=== PATIENT | male | born 1940 | race Caucasian/White ===

== ENCOUNTER → 2018-07-04 17:43 | Outpatient (CLI) | payer OTHER, SELFPAY ==
--- NOTE | 2018-07-09 15:46 | PM.PFT.1 ---
Pulmonary Function Test Referral & Results Date Patient Seen: 07/04/18 Requesting provider: Anirudh Lopez Indication: R06.09 Results: The spirometry demonstrates an FVC of 2.97 L which is 66% of predicted. The FEV1 was measured at 1.93 L which is 60% of predicted. The FEV1/FVC ratio was 65 which is 90% of predicted. Following the administration of bronchodilator there was 11% improvement in FEV1 and a 36% improvement in FEF 25-75%. Lung volumes show an SVC of 3.66 L which is 77% of predicted. The diffusing capacity was measured at 22.69 which is 64% of predicted. No hemoglobin value was provided, so no correction for potential anemia could be made, if appropriate. 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
== END ==
PROVIDERS: Family Provider Family Medicine; PCP Family Medicine; Referring Provider Internal Medicine Interventional Cardiology; Visit Provider Family Medicine
DX: R06.09 Other forms of dyspnea (principal)
CPT/HCPCS: 94060; 94726; 94729

== ENCOUNTER 2020-03-09 11:44 | Emergency (ER) | payer MEDICARE, SELFPAY ==
[2020-03-09] VITALS (27 sets, daily range): BP systolic 135–237; BP diastolic 63–102; PULSE 58–70; RESP 14–24; TEMP 36.5; O2SAT 95–100; BMI 27.1
--- NOTE | 2020-03-09 11:49 | ED_ITS ---
HPI - General Adult General Chief complaint: Shortness of Breath/Dyspnea Stated complaint: out of breath when walking Time Seen by Provider: 03/09/20 11:49 History of Present Illness HPI narrative: 80-year-old gentleman with a history of coronary bypass, carotid artery disease, mesenteric ischemia, pulmonary embolism currently on Eliquis presents with 2 days of increasing exertional dyspnea and chest pressure. Rather acute change 2 days ago without any associated ?event or obvious change to symptoms at this time. He notes that he has not been walking his usual 1 mi a day because of smoke in the air in when he went to do so today had trouble even going a quarter of a mi without feeling short of breath. He did try a nitroglycerin when he returned home (prescription was 2 years old and given after his open heart surgery) but did not notice that it made any difference he does note that it tingled under his tongue. Recently he describes no orthopnea, no actual chest pain, no focal neurologic findings, no cough, no fevers, no abdominal pain, no lower extremity edema. Notes that over the last 6 weeks he has had numbness in both feet by the end of his 1 mi walk without any muscle cramping. The numbness resolves within minutes of stopping Related Data Home Medications Medication Instructions Recorded Confirmed aspirin 81 mg PO QDAY #0 01/21/13 03/09/20 [CO-Q-10] 300 mg Q DAY #0 03/20/16 03/09/20 ascorbic acid (vitamin C) 1,000 mg PO QDAY #0 tab 03/20/16 albuterol sulfate [Ventolin HFA] 2 puff INHALATION Q4-6H PRN 03/09/20 03/09/20 apixaban [Eliquis] 5 mg PO BID 03/09/20 03/09/20 carvedilol 25 mg PO BID 03/09/20 03/09/20 cyclobenzaprine 10 mg PO BEDTIME PRN 03/09/20 03/09/20 diphenhydramine-acetaminophen 1 tab PO BEDTIME PRN 03/09/20 03/09/20 [Acetaminophen PM] fluticasone propionate [Flovent 2 puff INHALATION BID 03/09/20 03/09/20 HFA] losartan 25 mg PO DAILY 03/09/20 03/09/20 rosuvastatin 40 mg PO DAILY 03/09/20 03/09/20 sildenafil 100 mg PO DAILY PRN 03/09/20 03/09/20 tamsulosin 0.4 mg PO BEDTIME 03/09/20 03/09/20 Previous Rx's Medication Instructions Recorded [id number] 0 OTIC QID #10 ml 05/25/16 prednisone 2.5 mg PO QDAY #45 tab 02/09/17 allopurinol 200 mg PO QDAY #180 tab 02/22/17 Allergies Allergy/AdvReac Type Severity Reaction Status Date / Time No Known Drug Allergies Allergy Verified 03/09/20 11:52 Review of Systems Review of Systems Narrative: Remainder of review of systems including constitutional, ENT, cardiovascular, respiratory, GI, , musculoskeletal, skin, neurologic and psychiatric systems reviewed and are unremarkable except as noted in HPI. Patient History Medical History Coronary artery disease involving ak chin coronary artery of ak chin heart without angina pectoris (08/23/15) History of colonic polyps (08/23/15) History of stroke (08/23/15) Hypertension (Acute) Mesenteric ischemia (08/23/15) Mixed hyperlipidemia (08/23/15) Pacemaker (Acute) Stage 3 chronic kidney disease (08/23/15) Surgical History Hx of CABG (Inactive) Social History Smoking Status: Unknown if ever smoked Exam Narrative Exam Narrative: General: Healthy appearing, in no acute distress. Able to give a complete and coherent history. Well-nourished well-developed HEENT: Moist mucous membranes, normal sclera with reactive pupils, Neck: No JVD, supple Respiratory: Lungs are clear to auscultation, no wheezing no rales no rhonchi. Full and symmetrical air movement. Chest: Well-healed median sternotomy scar, no accessory muscle use Cardiac: Regular rate and rhythm no murmurs no bruits Abdomen: Soft nontender good bowel tones, no flank pain Skin: Warm and dry, no rashes Neurologic: Grossly neurologically intact with no obvious asymmetries or abnormalities Extremities: No trauma, well perfused Psych: Cooperative, appropriate insight and affect Initial Vital Signs Initial Vital Signs: Vital Signs Temperature 97.7 F 03/09/20 11:48 Pulse Rate 58 L 03/09/20 11:48 Respiratory Rate 18 03/09/20 11:48 Blood Pressure 223/93 H 03/09/20 11:48 Pulse Oximetry 98 03/09/20 11:48 Course Orders Ordered: ED Orders 03/09/20 11:51 XR chest 2V Stat EKG-12 Lead Stat 03/09/20 12:00 Complete Blood Count AUTO DIFF Stat Comprehensive Metabolic Panel Stat D Dimer Stat Lactate (Lactic Acid) Stat Troponin & CK Cardiac Panel Stat 03/09/20 13:37 CT angio chest PE protocol Stat 03/09/20 16:10 COVID19 -ED/INPAT/OR/L&D Stat Nitroglycerin (Nitrostat) 0.4 mg SL [id number] PRN PRN Reason: Chest Pain Last Admin: 03/09/20 12:26 Dose: 0.4 mg Documented by: LONNIE Discontinued Medications Bisacodyl (Dulcolax) 10 mg NE NOW ONE Stop: 03/09/20 11:56 Last Admin: 03/09/20 12:08 Dose: Not Given Documented by: LONNIE Dicyclomine HCl (Bentyl) 20 mg PO NOW ONE Stop: 03/09/20 11:56 Last Admin: 03/09/20 12:08 Dose: Not Given Documented by: LONNIE Furosemide (Lasix) 40 mg IV NOW ONE Stop: 03/09/20 18:07 Last Admin: 03/09/20 18:36 Dose: 40 mg Documented by: SAIRA Nitroglycerin (Nitro-Bid) 1 inch TOP NOW ONE Stop: 03/09/20 16:49 Last Admin: 03/09/20 16:56 Dose: 1 inch Documented by: SAIRA Vital Signs Vital signs: Vital Signs - 8 hr 03/09/20 11:48 03/09/20 11:52 03/09/20 12:00 Temperature 97.7 F Pulse Rate 58 L 61 61 Respiratory Rate 18 24 Blood Pressure 223/93 H Pulse Oximetry 98 99 99 03/09/20 12:26 03/09/20 12:30 03/09/20 12:41 Temperature Pulse Rate 60 60 60 Respiratory Rate 22 20 21 Blood Pressure 229/92 H 135/63 Pulse Oximetry 99 98 95 03/09/20 12:45 03/09/20 13:00 03/09/20 13:30 Temperature Pulse Rate 60 60 60 Respiratory Rate 14 19 17 Blood Pressure 145/65 H 184/78 H 164/71 H Pulse Oximetry 97 97 98 03/09/20 14:04 03/09/20 14:13 03/09/20 14:37 Temperature Pulse Rate 70 60 60 Respiratory Rate 22 17 Blood Pressure 195/82 H Pulse Oximetry 98 99 03/09/20 14:38 03/09/20 15:00 03/09/20 15:01 Temperature Pulse Rate 60 60 60 Respiratory Rate 19 17 16 Blood Pressure 212/88 H 199/83 H Pulse Oximetry 100 99 99 03/09/20 15:30 03/09/20 15:33 03/09/20 15:54 Temperature Pulse Rate 60 60 60 Respiratory Rate 24 24 22 Blood Pressure 226/101 H 237/99 H Pulse Oximetry 99 99 99 03/09/20 16:00 03/09/20 16:30 03/09/20 16:56 Temperature Pulse Rate 60 60 61 Respiratory Rate 20 16 Blood Pressure 212/93 H 223/86 H 237/102 H Pulse Oximetry 99 98 03/09/20 17:00 03/09/20 17:02 03/09/20 17:30 Temperature Pulse Rate 60 60 60 Respiratory Rate 20 19 18 Blood Pressure 237/102 H Pulse Oximetry 98 98 98 03/09/20 17:31 03/09/20 18:00 Temperature Pulse Rate 60 60 Respiratory Rate 18 17 Blood Pressure 196/82 H 197/83 H Pulse Oximetry 98 97 Medical Decision Making Medical Records Medical records reviewed: Yes I reviewed the patient's medical records. Lab Data Lab results reviewed: Yes I reviewed the patient's lab results. Result diagrams: 03/09/20 12:00 03/09/20 12:00 Labs: Lab Results 03/09/20 03/09/20 03/09/20 Range/Units 12:00 12:00 12:00 WBC 4.1 L (4.5-11.0) X10^3/uL RBC 3.61 L (4.5-5.9) X10^6/uL Hgb 12.4 L (13.5-17.5) g/dL Hct 37.2 L (41-53) % MCV 103.0 H (80-100) fL MCH 34.3 H (26-34) PG MCHC 33.3 (30-36) % RDW 15.2 H (11.6-14.8) % Plt Count 105 L (150-400) X10^3/uL Neut % (Auto) 58.0 (50-75) % Lymph % (Auto) 25.2 (25-40) % [place] % (Auto) 13.3 (3-14) % Eos % (Auto) 2.6 (2-4) % Baso % (Auto) 0.9 (0-2) % Neut # (Auto) 2400 (7431-9105) /uL Lymph # (Auto) 1000 L (1737-4563) /uL [place] # (Auto) 500 (0-900) /uL Eos # (Auto) 100 (0-450) /uL Baso # (Auto) 0 (0-100) /uL D-Dimer (<230) ng/mL Sodium 143 (137-145) mmol/L Potassium 5.0 (3.4-5.1) mmol/L Chloride 108 H (98-107) mmol/L Carbon Dioxide 28 (22-32) mmol/L BUN 34 H (9-20) mg/dL Creatinine 1.50 H (0.66-1.25) mg/dL Estimated GFR 45.0 L (>60) mL/min BUN/Creatinine Ratio 22.7 H (6-22) Glucose 101 (80-110) mg/dL Lactate 1.1 (0.7-2.1) mmol/L Calcium 9.4 (8.4-10.2) mg/dL Total Bilirubin 0.6 (0.2-1.3) mg/dL AST 24 (17-59) IU/L ALT 22 (<50) IU/L Alkaline Phosphatase 86 (38-126) U/L Total Creatine Kinase (55-170) U/L CK-MB (CK-2) CK-MB (CK-2) Rel Index Troponin I (0.01-0.034) ng/mL Total Protein 7.0 (6.3-8.2) g/dL Albumin 4.3 (3.5-5.0) g/dL Globulin 2.7 (1.7-4.1) g/dL Albumin/Globulin Ratio 1.6 (1.0-2.8) COVID-19 PCR (Negative) 03/09/20 03/09/20 03/09/20 Range/Units 12:00 12:00 16:10 WBC (4.5-11.0) X10^3/uL RBC (4.5-5.9) X10^6/uL Hgb (13.5-17.5) g/dL Hct (41-53) % MCV (80-100) fL MCH (26-34) PG MCHC (30-36) % RDW (11.6-14.8) % Plt Count (150-400) X10^3/uL Neut % (Auto) (50-75) % Lymph % (Auto) (25-40) % [place] % (Auto) (3-14) % Eos % (Auto) (2-4) % Baso % (Auto) (0-2) % Neut # (Auto) (7220-7981) /uL Lymph # (Auto) (1214-1612) /uL [place] # (Auto) (0-900) /uL Eos # (Auto) (0-450) /uL Baso # (Auto) (0-100) /uL D-Dimer 310 H (<230) ng/mL Sodium (137-145) mmol/L Potassium (3.4-5.1) mmol/L Chloride (98-107) mmol/L Carbon Dioxide (22-32) mmol/L BUN (9-20) mg/dL Creatinine (0.66-1.25) mg/dL Estimated GFR (>60) mL/min BUN/Creatinine Ratio (6-22) Glucose (80-110) mg/dL Lactate (0.7-2.1) mmol/L Calcium (8.4-10.2) mg/dL Total Bilirubin (0.2-1.3) mg/dL AST (17-59) IU/L ALT (<50) IU/L Alkaline Phosphatase (38-126) U/L Total Creatine Kinase 26 L (55-170) U/L CK-MB (CK-2) TNP CK-MB (CK-2) Rel Index TNP Troponin I 0.016 (0.01-0.034) ng/mL Total Protein (6.3-8.2) g/dL Albumin (3.5-5.0) g/dL Globulin (1.7-4.1) g/dL Albumin/Globulin Ratio (1.0-2.8) COVID-19 PCR Negative (Negative) Urine Dip Bedside Urine Glucose Negative Bedside Urine Bilirubin - Negative Bedside Urine Ketone - Negative Urine Specific [place] 1.030 Bedside Urine Occult Blood - Negative Bedside Urine pH 5.5 Bedside Urine Protein - Negative Bedside Urine Urobilinogen - Negative Bedside Urine Nitrite - Negative Bedside Urine Leukocytes - Negative Esterase Point of care testing: Urine Dip Bedside Urine Glucose Negative Bedside Urine Bilirubin - Negative Bedside Urine Ketone - Negative Urine Specific [place] 1.030 Bedside Urine Occult Blood - Negative Bedside Urine pH 5.5 Bedside Urine Protein - Negative Bedside Urine Urobilinogen - Negative Bedside Urine Nitrite - Negative Bedside Urine Leukocytes - Negative Esterase Imaging Data Chest x-ray: Radiologist's Impression: FINDINGS: Surgical changes and devices: Median sternotomy and CABG changes. Possible aortic valvuloplasty. Left-sided pacemaker. Monitoring wires are present overlying the chest. Lungs and pleura: Lungs are clear. No pleural effusions or pneumothorax. Mediastinum: Mediastinal contours are normal. Heart size is normal. Bones and chest wall: No suspicious bony abnormalities. Soft tissues appear unremarkable. IMPRESSION: 1. No acute cardiopulmonary disease. 2. Surgical changes to the heart as described. Dictated by: Tala Alford M.D. on 03/09/2020 at 11:26 CT scan - chest: Radiologist's Impression: FINDINGS: Image quality: Excellent. Pulmonary arteries: Pulmonary arteries are normal in size, and demonstrate no intraluminal filling defects to suggest central pulmonary embolism. Lungs and pleura: Minor posterior medial bilateral lower lung strandy opacities without consolidation. Lungs are otherwise clear. No pleural effusions or pneumothorax . Central and peripheral airways are patent. Mediastinum: Heart size is mildly enlarged with post CABG changes and dense [place] coronary artery calcification. Pacemaker leads are in place. There is no pericardial effusion. No mediastinal or hilar adenopathy. Thoracic aorta is normal in corwin jennifer and enhancement. Moderate calcification. Esophagus is normal in caliber, without hiatal hernia. Bones and chest wall: No suspicious bony lesions. Ribs and thoracic spine appear intact throughout. Thyroid gland is normal . No axillary or supraclavicular adenopathy. Abdomen: Visualized upper abdomen demonstrates cholelithiasis in a decompressed gallbladder and colonic diverticulosis without visible acute diverticulitis. IMPRESSION: 1. No pulmonary embolus. 2. Postsurgical changes to the heart and pacemaker present. 3. Minor posteromedial atelectatic changes/scar without other pulmonary parenchymal abnormalities present. 4. Cholelithiasis. Dictated by: Tala Alford M.D. on 03/09/2020 at 13:30 ECG Data Interpretation: Atrial paced rhythm at a rate of 66 Occasional PVC MDM Narrative Medical decision making narrative: 80-year-old gentleman presents with 2 days of severe dyspnea. Chest x-ray and clinical exam do not look like acute heart failure. Troponin is negative (EKG is paced so further interpretation is di fficult). Has no significant wheezing to suggest COPD or asthma exacerbation. D-dimer is slightly elevated as I have no other explanation for his severe acute dyspnea will moved to a CT scan of the chest. Sublingual nitro given in the emergency department caused significant decrease in blood pressure and took his pressure sensation in the chest from a 2 to a 1. 320pm CT scan of the chest does not show any acute pulmonary embolism, pneumonia, pneumothorax, pericardial effusion. Blood pressures remain significantly elevated in the 230/110 range, climbing back up after the single nitroglycerin. Dyspnea and any sort of chest pressure are currently resolved. [employer] is page 4:[phone] 80-year-old gentle with severe exertional dyspnea for 48 hours Covid negative no evidence of asthma or COPD complicating. Troponin and chest CT are unremarkable. Blood pressures remain significantly elevated room review findings with hospitalist. Cardiology paged again. 4:[address] Kim. Agrees with admission, likely stress test and echo. Last echo with 45% EF. Despite no CHF on imaging, recommends trial of IV nitro. Will see if beds are avialable at [facility] for hospitalist admit and cards consult. 6:05 Dr Elliott, hospitalist accepts transfer. Findings concerns plans and imminent transfer are reviewed with patient and his . Questions are answered. They are safe [facility] Discharge Plan Departure Patient Disposition: [facility] Clinical Impression: Exertional dyspnea Prescriptions: No Action aspirin 81 MG tablet,delayed release (DR/EC) 81 mg PO QDAY Qty: 0 RF: 0 ascorbic acid (vitamin C) 500 MG tablet 1,000 mg PO QDAY Qty: 0 RF: 0 [CO-Q-10] 300 mg Q DAY Qty: 0 RF: 0 [id number] 10 ML drops,suspension 0 OTIC QID Qty: 10 RF: 0 prednisone 5 MG tablet 2.5 mg PO QDAY Qty: 45 RF: 1 allopurinol 100 MG tablet 200 mg PO QDAY Qty: 180 RF: 0 cyclobenzaprine 10 mg Tablet 10 mg PO BEDTIME PRN (Reason: Muscle Spasm) RF: 0 carvedilol 25 mg Tablet 25 mg PO BID RF: 0 sildenafil 100 mg Tablet 100 mg PO DAILY PRN (Reason: Erectile Dysfunction) RF: 0 tamsulosin 0.4 mg Capsule 0.4 mg PO BEDTIME RF: 0 losartan 25 mg Tablet 25 mg PO DAILY RF: 0 albuterol sulfate [Ventolin HFA] 90 mcg/actuation Hfa Aerosol Inhaler 2 puff INHALATION Q4-6H PRN (Reason: Shortness Of Breath) RF: 0 diphenhydramine-acetaminophen [Acetaminophen PM] 25-500 mg Tablet 1 tab PO BEDTIME PRN (Reason: Spasms) RF: 0 Flovent HFA 110 mcg/actuation Hfa Aerosol Inhaler 2 puff INHALATION BID RF: 0 rosuvastatin 40 mg Tablet 40 mg PO DAILY RF: 0 Eliquis 5 mg Tablet 5 mg PO BID RF: 0 Referrals: Saeed Ramirez MD [Primary Care Provider] -
--- NOTE | 2020-03-09 11:51 | DI.RAD.S_ITS ---
PROCEDURE: XR CHEST 2V INDICATIONS: shortness of breath TECHNIQUE: 2 views of the chest were acquired. COMPARISON: [facility], , CHEST 1 VIEW, 06/24/2017, 14:53. FINDINGS: Surgical changes and devices: Median sternotomy and CABG changes. Possible aortic valvuloplasty. Left-sided pacemaker. Monitoring wires are present overlying the chest. Lungs and pleura: Lungs are clear. No pleural effusions or pneumothorax. Mediastinum: Mediastinal contours are normal. Heart size is normal. Bones and chest wall: No suspicious bony abnormalities. Soft tissues appear unremarkable. IMPRESSION: 1. No acute cardiopulmonary disease. 2. Surgical changes to the heart as described. Dictated by: Tala Alford M.D. on 03/09/2020 at 11:26 Approved by: Tala Alford M.D. on 03/09/2020 at 11:28
[2020-03-09 12:21] LABS: Add Manual Diff / Slide Review NO; Basophils Absolute Auto 0 /uL (0-100); Basophils Percent Auto 0.9 % (0-2); Eosinophils Absolute Auto 100 /uL (0-450); Eosinophils Percent Auto 2.6 % (2-4); Hematocrit 37.2 % (41-53); Hemoglobin 12.4 g/dL (13.5-17.5); Lymphocytes Absolute Auto 1000 /uL (1100-4500); Lymphocytes Percent Auto 25.2 % (25-40); Mean Corpuscular HGB Conc 33.3 % (30-36); Mean Corpuscular Hemoglobin 34.3 PG (26-34); Monocytes Absolute Auto 500 /uL (0-900); Monocytes Percent Auto 13.3 % (3-14); Neutrophils Absolute Auto 2400 /uL (1500-7000); Platelet Count 105 X10^3/uL (150-400); Red Blood Cell Count 3.61 X10^6/uL (4.5-5.9); Red Cell Distribution Width 15.2 % (11.6-14.8); White Blood Cell Count 4.1 X10^3/uL (4.5-11.0)
[2020-03-09 12:22] LABS: Alanine Aminotransferase 22 IU/L (<50); Albumin 4.3 g/dL (3.5-5.0); Albumin Globulin Ratio 1.6 (1.0-2.8); Alkaline Phosphatase 86 U/L (38-126); Aspartate Aminotransferase 24 IU/L (17-59); BUN Creatinine Ratio 22.7 (6-22); Bilirubin Total 0.6 mg/dL (0.2-1.3); Blood Urea Nitrogen 34 mg/dL (9-20); Calcium 9.4 mg/dL (8.4-10.2); Carbon Dioxide 28 mmol/L (22-32); Chloride 108 mmol/L (98-107); Globulin 2.7 g/dL (1.7-4.1); Glucose 101 mg/dL (80-110); HEMOLYSIS < 15 (0-50); Sodium 143 mmol/L (137-145)
[2020-03-09 12:23] LABS: Lactate (Lactic Acid) 1.1 mmol/L (0.7-2.1)
[2020-03-09] MEDS: NITROGLYCERIN 0.4 MG SL TAB SL (12:26)
[2020-03-09 12:38] LABS: Creatine Kinase 26 U/L (55-170)
[2020-03-09 12:47] LABS: D Dimer 310 ng/mL (<230)
[2020-03-09 12:50] LABS: Troponin I 0.016 ng/mL (0.01-0.034)
--- NOTE | 2020-03-09 13:37 | DI.CT.S_ITS ---
PROCEDURE: CT ANGIO CHEST PE PROTOCOL INDICATIONS: acute dyspnea, elevated d dimer TECHNIQUE: After the administration of intravenous contrast, 2 mm thick sections acquired from the pulmonary apices to the posterior costophrenic angles. 3-dimensional maximum intensity projection (MIP) coronal and sagittal reformats were then acquired through the thorax. For radiation dose reduction, the following was used: automated exposure control, adjustment of mA and/or kV according to patient size. COMPARISON: [facility], CT, CT ANGIO CHEST PE, 11/04/2018, 18:34. FINDINGS: Image quality: Excellent. Pulmonary arteries: Pulmonary arteries are normal in size, and demonstrate no intraluminal filling defects to suggest central pulmonary embolism. Lungs and pleura: Minor posterior medial bilateral lower lung strandy opacities without consolidation. Lungs are otherwise clear. No pleural effusions or pneumothorax. Central and peripheral airways are patent. Mediastinum: Heart size is mildly enlarged with post CABG changes and dense [place] coronary artery calcification. Pacemaker leads are in place. There is no pericardial effusion. No mediastinal or hilar adenopathy. Thoracic aorta is normal in caliber and enhancement. Moderate calcification. Esophagus is normal in caliber, without hiatal hernia. Bones and chest wall: No suspicious bony lesions. Ribs and thoracic spine appear intact throughout. Thyroid gland is normal . No axillary or supraclavicular adenopathy. Abdomen: Visualized upper abdomen demonstrates cholelithiasis in a decompressed gallbladder and colonic diverticulosis without visible acute diverticulitis. IMPRESSION: 1. No pulmonary embolus. 2. Postsurgical changes to the heart and pacemaker present. 3. Minor posteromedial atelectatic changes/scar without other pulmonary parenchymal abnormalities present. 4. Cholelithiasis. Dictated by: Tala Alford M.D. on 03/09/2020 at 13:30 Approved by: Tala Alford M.D. on 03/09/2020 at 13:38
[2020-03-09 16:40] LABS: COVID19 -Nasal RAPID Negative (Negative)
[2020-03-09] MEDS: NITROGLYCERIN OINT 1 INCH/GM OINT...G. TOP (16:56)
[2020-03-09] MEDS: FUROSEMIDE 40 MG/4 ML VIAL IV (18:36)
== END 2020-03-09 19:35 | disposition short-term general hospital (02) ==
PROVIDERS: Emergency Provider Emergency Medicine; Family Provider Family Medicine; PCP Family Medicine
DX: R06.00 Dyspnea, unspecified (principal); R07.9 Chest pain, unspecified; Z95.0 Presence of cardiac pacemaker
CPT/HCPCS: 36415; 71046; 71275; 80053; 81003; 82550; 83605; 84484; 85025; 85379; 87635; 93005; 93010; 94150; 96374; 99285; J1940; Q9967

== ENCOUNTER 2020-05-07 08:48 | Emergency (ER) | payer MEDICARE, SELFPAY ==
[2020-05-07] VITALS (9 sets, daily range): BP systolic 147–178; BP diastolic 61–76; PULSE 60–63; RESP 15–23; TEMP 36.6; O2SAT 97–99; BMI 23.5
--- NOTE | 2020-05-07 09:09 | ED_ITS ---
HPI - Extremity Problem General Chief complaint: Extremity Problem,Nontraumatic Stated complaint: pain in right leg Time Seen by Provider: 05/07/20 09:09 Source: patient Mode of arrival: Ambulatory Limitations: no limitations History of Present Illness HPI Narrative: Patient is a 80-year-old male with history of CABG, mesenteric ischemia, PE on Eliquis presenting with right leg pain ongoing for the last 5 days. He said Sunday he watched the football game so he sat quite a bit and then Sunday he started having extreme pain in his leg. He says he is unable to bend his knee because of pain. He has not actually had any swelling but it hurts too bad to walk. He has not had any chest pain or shortness of breath. He denies any injury MD Complaint: extremity pain Quality: aching Radiation: none Relieving factors: nothing Related Data Home Medications Medication Instructions Recorded Confirmed aspirin 81 mg PO QDAY #0 01/21/13 03/09/20 [CO-Q-10] 300 mg Q DAY #0 03/20/16 03/09/20 ascorbic acid (vitamin C) 1,000 mg PO QDAY #0 tab 03/20/16 albuterol sulfate [Ventolin HFA] 2 puff INHALATION Q4-6H PRN 03/09/20 03/09/20 apixaban [Eliquis] 5 mg PO BID 03/09/20 03/09/20 carvedilol 25 mg PO BID 03/09/20 03/09/20 cyclobenzaprine 10 mg PO BEDTIME PRN 03/09/20 03/09/20 diphenhydramine-acetaminophen 1 tab PO BEDTIME PRN 03/09/20 03/09/20 [Acetaminophen PM] fluticasone propionate [Flovent 2 puff INHALATION BID 03/09/20 03/09/20 HFA] losartan 25 mg PO DAILY 03/09/20 03/09/20 rosuvastatin 40 mg PO DAILY 03/09/20 03/09/20 sildenafil 100 mg PO DAILY PRN 03/09/20 03/09/20 tamsulosin 0.4 mg PO BEDTIME 03/09/20 03/09/20 Previous Rx's Medication Instructions Recorded [id number] OTIC QID #10 ml 05/25/16 prednisone 2.5 mg PO QDAY #45 tab 02/09/17 allopurinol 200 mg PO QDAY #180 tab 02/22/17 hydrocodone-acetaminophen 1 tab PO Q6H PRN #10 tab 05/07/20 Allergies Allergy/AdvReac Type Severity Reaction Status Date / Time No Known Drug Allergies Allergy Verified 03/09/20 11:52 Review of Systems Review of Systems ROS Unobtainable: All systems reviewed & are unremarkable except as noted in HPI and below Constitutional Constitutional: Denies chills, Denies fever(s), Denies lethargy and Denies weakness Eyes Eyes: Denies change in vision, Denies eye discharge, Denies irritation and Denies loss of vision Cardiovascular Cardiovascular: Denies chest pain, Denies irregular heart rhythm, Denies lightheadedness, Denies palpitations, Denies dyspnea, Denies dyspnea on exertion and Denies orthopnea Respiratory Respiratory: Denies cough, Denies dyspnea, Denies dyspnea on exertion and Denies wheezing Gastrointestinal Gastrointestinal: Denies abdominal pain, Denies change in bowel habits, Denies diarrhea, Denies nausea and Denies vomiting Musculoskeletal Musculoskeletal: Reports as per HPI Integumentary/Breasts Skin/Breast: Denies pruritus, Denies erythema, Denies rash and Denies wounds Neurologic Neurologic: Denies loss of vision and Denies weakness Endocrine Endocrine: Denies palpitations Allergic/Immunologic Allergic/Immunologic: Denies wheezing Patient History Medical History (Updated 05/07/20 @ 10:59 by Cecilia Kruse DO) Coronary artery disease involving [place] coronary artery of [place] heart without angina pectoris (08/23/15) History of colonic polyps (08/23/15) History of stroke (08/23/15) Hypertension Mesenteric ischemia (08/23/15) Mixed hyperlipidemia (08/23/15) Pacemaker Stage 3 chronic kidney disease (08/23/15) Surgical History Hx of CABG Social History Smoking Status: Unknown if ever smoked Smoking Status: Unknown if ever smoked alcohol intake frequency: 0-2 drinks per day Substance Use Type: does not use Exam Initial Vital Signs Initial Vital Signs: Vital Signs Temperature 97.9 F 05/07/20 09:11 Pulse Rate 62 05/07/20 09:11 Respiratory Rate 18 05/07/20 09:11 Blood Pressure 151/61 H 05/07/20 09:11 Pulse Oximetry 99 05/07/20 09:11 GENERAL: Alert well-appearing male HEENT: Head atraumatic,EOMI, pupils reactive, face symmetric, moist mucous membranes CARDIOVASCULAR: Regular rate and rhythm without murmurs, rubs or gallops. RESPIRATORY: Breath sounds equal bilaterally, no wheezes rales or rhonchi. ABDOMEN: Soft, nontender. Normoactive bowel sounds all 4 quadrants. No guarding or rebound. EXTREMITIES: Normal range of motion, no clubbing or edema. Neurovascularly intact Peripheral pulses in both feet are not palpable but they are identified by Doppler and he has adistal pedal pulse. Right knee is stable no erythema no swelling decreased range of motion due to pain NEUROLOGICAL: Alert and oriented x4.Normal gait and speech. Cranial nerves II through XII grossly intact. SKIN: Warm, dry, no laceration, no petechiae, no rashes or lesions. Course Orders Ordered: ED Orders 05/07/20 09:09 US periph venous low extrem rt Stat 05/07/20 09:20 XR chest 1V Stat Complete Blood Count AUTO DIFF Stat Comprehensive Metabolic Panel Stat Lipase Stat Partial Thromboplastin Time Stat Prothrombin Time INR Stat Troponin & CK Cardiac Panel Stat 05/07/20 09:47 US arterial duplex LE RT Stat 05/07/20 10:41 XR knee RT 3V Stat Vital Signs Vital signs: Vital Signs - 8 hr 05/07/20 09:11 05/07/20 09:22 05/07/20 09:25 Temperature 97.9 F Pulse Rate 62 61 63 Respiratory Rate 18 23 Blood Pressure 151/61 H 173/74 H Pulse Oximetry 99 99 99 05/07/20 09:30 05/07/20 10:00 05/07/20 10:01 Temperature Pulse Rate 62 60 60 Respiratory Rate 22 18 15 Blood Pressure 154/68 H 156/70 H Pulse Oximetry 99 98 98 05/07/20 10:30 05/07/20 10:57 05/07/20 11:00 Temperature Pulse Rate 60 61 61 Respiratory Rate 19 22 19 Blood Pressure 147/64 H 178/76 H 164/72 H Pulse Oximetry 97 99 99 MDM - Extremity (Nontraumatic) Lab Data Result diagrams: 05/07/20 09:20 05/07/20 09:20 Labs: Lab Results 05/07/20 05/07/20 05/07/20 Range/Units 09:20 09:20 09:20 WBC 4.1 L (4.5-11.0) X10^3/uL RBC 3.26 L (4.5-5.9) X10^6/uL Hgb 11.3 L (13.5-17.5) g/dL Hct 33.6 L (41-53) % MCV 103.1 H (80-100) fL MCH 34.6 H (26-34) PG MCHC 33.5 (30-36) % RDW 15.7 H (11.6-14.8) % Plt Count 101 L (150-400) X10^3/uL Neut % (Auto) 63.9 (50-75) % Lymph % (Auto) 20.6 L (25-40) % Patrick % (Auto) 12.5 (3-14) % Eos % (Auto) 2.2 (2-4) % Baso % (Auto) 0.8 (0-2) % Neut # (Auto) 2600 (2674-1828) /uL Lymph # (Auto) 800 L (4488-6499) /uL Patrick # (Auto) 500 (0-900) /uL Eos # (Auto) 100 (0-450) /uL Baso # (Auto) 0 (0-100) /uL PT 19.8 H (10.1-12.7) SECONDS INR 1.7 H (0.9-1.3) APTT 37 H (26.4-36.2) SECONDS Sodium 141 (137-145) mmol/L Potassium 4.8 (3.4-5.1) mmol/L Chloride 110 H (98-107) mmol/L Carbon Dioxide 25 (22-32) mmol/L BUN 37 H (9-20) mg/dL Creatinine 1.38 H (0.66-1.25) mg/dL Estimated GFR 49.6 L (>60) mL/min BUN/Creatinine Ratio 26.8 H (6-22) Glucose 139 H (80-110) mg/dL Calcium 9.4 (8.4-10.2) mg/dL Total Bilirubin 0.6 (0.2-1.3) mg/dL AST 19 (17-59) IU/L ALT 19 (<50) IU/L Alkaline Phosphatase 77 (38-126) U/L Total Creatine Kinase 23 L (55-170) U/L CK-MB (CK-2) TNP CK-MB (CK-2) Rel Index TNP Troponin I < 0.012 (0.01-0.034) ng/mL Total Protein 6.9 (6.3-8.2) g/dL Albumin 4.1 (3.5-5.0) g/dL Globulin 2.8 (1.7-4.1) g/dL Albumin/Globulin Ratio 1.5 (1.0-2.8) Lipase 234 (23-300) U/L Imaging Data US - DVT: Radiologist's Impression: PROCEDURE: US PERIPH VENOUS LOW EXTREM RT INDICATIONS: RIGHT CALF PAIN TECHNIQUE: Real-time imaging, as well as color and pulse Doppler interrogation, were performed of the lower extremity deep veins from the inguinal ligament to the popliteal fossa. COMPARISON: None. FINDINGS: The common femoral, femoral and popliteal veins are normally compressible, and free of intraluminal thrombus. Color and pulse Doppler demonstrate normal ph asic intraluminal flow. There is normal augmentation response to distal compression maneuver. IMPRESSION: No deep venous thrombosis. Dictated by: Dayna Nix M.D. on 05/07/2020 at 10:17 Extremity x-ray #1: Radiologist's Impression: PROCEDURE: XR KNEE RT 3V INDICATIONS: pain TECHNIQUE: 3 views of the knee were acquired. COMPARISON: None. FINDINGS: Bones: Surgical clips are seen along the posteromedial side of the knee joint. There is medial joint space narrowing. The bones have mild degenerative changes. There are osteophytes of the lateral joint space and patella. Soft tissues: Vasculature has atherosclerotic calcifications. No joint effusion. IMPRESSION: 1. Degenerative changes of the right knee with no acute abnormality. 2. Postoperative changes along the posteromedial knee. Dictated by: Wayne Grady M.D. on 05/07/2020 at 11:09 Chest x-ray: Radiologist's Impression: PROCEDURE: XR CHEST 1V INDICATIONS: chest pain TECHNIQUE: One view of the chest was acquired. COMPARISON: [facility], XR CHEST 2V, 03/09/2020, 11:12. FINDINGS: Surgical changes and devices: Pacemaker and sternal wires are present. Lungs and pleura: Lungs are clear. No pleural effusions or pneumothorax. Mediastinum: Mediastinal contours appear normal. Heart size is normal. Bones and chest wall: No suspicious bony lesions. Overlying soft tissues appear unremarkable. IMPRESSION: No acute pulmonary process. Dictated by: Dayna Nix M.D. on 05/07/2020 at 9:50 Approved by: Dayna Nix M.D. on 05/07/2020 at 10:15 arterial: Radiologist's Impression: PROCEDURE: US ARTERIAL DUPLEX LE RT INDICATIONS: PAIN TECHNIQUE: Color and pulse Doppler interrogation was performed of the right lower extremity arterial system, with image documentation. COMPARISON: None. FINDINGS: Common femoral artery: 142 cm/sec, with triphasic flow. Deep femoral artery: 104 cm/sec, with biphasic flow. Proximal superficial femoral artery: 182 cm/sec, with biphasic flow. Mid superficial femoral artery: 105 cm/sec, with biphasic flow. Distal superficial femoral artery: 204 cm/sec, with biphasic flow. Popliteal artery: 101 cm/sec, with biphasic flow. Posterior tibial artery: 87 cm/sec, with biphasic flow. Anterior tibial artery/dorsalis pedis: 42 cm/sec, with biphasic flow. Dorsalis pedis: 26 cm/sec, with monophasic flow. Dasilva-scale imaging description: Minimal scattered plaque is seen in the right lower extremity. IMPRESSION: Diffuse mild disease in the right lower extremity with no sign ificant focal stenosis. Decreased velocities in the foot probably due to small vessel disease. Dictated by: Wayne Grady M.D. on 05/07/2020 at 10:30 [facility] Narrative Medical decision making narrative: Patient does not have DVT his pulses extremely hard to find but is dopplerable arterial ultrasound is done because patient has had arterial disease including mesenteric ischemia and coronary artery disease. The patient now states that really feels like it is his knee. He states 5 days ago he took Viagra and it is possible he strained it during intercourse. He otherwise does not remember any injury. Pain was significantly worse the following day. It hurts to walk. He has not yet had anything for pain. X-ray does show degenerative changes. This is likely more arthritic. Knee is stable. Discharge Plan Departure Patient Disposition: Home Clinical Impression: Knee sprain Qualifiers: Encounter type: initial encounter Involved ligament of knee: unspecified ligament Laterality: right Qualified Code(s): S83.91XA - Sprain of unspecified site of right knee, initial encounter Instructions: DI for Knee Sprain Activity Restrictions/Additional Instructions: *You have been diagnosed with right knee sprain *What to do: Increase activity as tolerated. Rest ice a 20 in 30 minutes as needed *Continue to take medications as directed Tylenol 650 mg every 4-6 hours if needed for [id number] pain [place] 1 tablet every 6 hours if needed for severe pain *Follow up with your primary care provider in 2-3 days *Return to ER if you should have increasing pain, weakness numbness tingling or any new, worsening or concerning symptoms CONTROLLED SUBSTANCE DISCHARGE (Narcotoic/benzodiazepine/Flexeril/Phenergan) 1. You have been prescribed narcotic medications, it does have acetaminophen/Tylenol/paracetamol in it so do not take extra Tylenol or Tylenol containing products TRAMADOL DOES NOT CONTAIN TYLENOL 2. Please understand that we cannot provide further refills of narcotics, benzo diazepines or controlled substances through the ED and her pain management will need to be through your provider. 3. While on these medications you cannot drive or operate heavy machinery. 4. You cannot sign legal documents or perform any duties such as this. 5. As long as you're taking opiate pain medications he should also be taking a stool softener such as Colace, Dulcolax, MiraLAX or prune juice, to help avoid constipation. Prescriptions: New hydrocodone-acetaminophen 5-325 mg tablet 1 tab PO Q6H PRN (Reason: pain) Qty: 10 RF: 0 No Action aspirin 81 MG tablet,delayed release (DR/EC) 81 mg PO QDAY Qty: 0 RF: 0 ascorbic acid (vitamin C) 500 MG tablet 1,000 mg PO QDAY Qty: 0 RF: 0 [CO-Q-10] 300 mg Q DAY Qty: 0 RF: 0 [id number] 10 ML drops,suspension 0 OTIC QID Qty: 10 RF: 0 prednisone 5 MG tablet 2.5 mg PO QDAY Qty: 45 RF: 1 allopurinol 100 MG tablet 200 mg PO QDAY Qty: 180 RF: 0 cyclobenzaprine 10 mg Tablet 10 mg PO BEDTIME PRN (Reason: Muscle Spasm) RF: 0 carvedilol 25 mg Tablet 25 mg PO BID RF: 0 sildenafil 100 mg Tablet 100 mg PO DAILY PRN (Reason: Erectile Dysfunction) RF: 0 tamsulosin 0.4 mg Capsule 0.4 mg PO BEDTIME RF: 0 losartan 25 mg Tablet 25 mg PO DAILY RF: 0 albuterol sulfate [Ventolin HFA] 90 mcg/actuation Hfa Aerosol Inhaler 2 puff INHALATION Q4-6H PRN (Reason: Shortness Of Breath) RF: 0 diphenhydramine-acetaminophen [Acetaminophen PM] 25-500 mg Tablet 1 tab PO BEDTIME PRN (Reason: Spasms) RF: 0 Flovent HFA 110 mcg/actuation Hfa Aerosol Inhaler 2 puff INHALATION BID RF: 0 rosuvastatin 40 mg Tablet 40 mg PO DAILY RF: 0 Eliquis 5 mg Tablet 5 mg PO BID RF: 0 Referrals: Saeed Ramirez MD [Primary Care Provider] -
--- NOTE | 2020-05-07 09:20 | DI.RAD.S_ITS ---
PROCEDURE: XR CHEST 1V INDICATIONS: chest pain TECHNIQUE: One view of the chest was acquired. COMPARISON: [facility], CR, XR CHEST 2V, 03/09/2020, 11:12. FINDINGS: Surgical changes and devices: Pacemaker and sternal wires are present. Lungs and pleura: Lungs are clear. No pleural effusions or pneumothorax. Mediastinum: Mediastinal contours appear normal. Heart size is normal. Bones and chest wall: No suspicious bony lesions. Overlying soft tissues appear unremarkable. IMPRESSION: No acute pulmonary process. Dictated by: Dyana Nix M.D. on 05/07/2020 at 9:50 Approved by: Dayna Nix M.D. on 05/07/2020 at 10:15
[2020-05-07 09:32] LABS: Add Manual Diff / Slide Review NO; Basophils Absolute Auto 0 /uL (0-100); Basophils Percent Auto 0.8 % (0-2); Eosinophils Absolute Auto 100 /uL (0-450); Eosinophils Percent Auto 2.2 % (2-4); Hematocrit 33.6 % (41-53); Hemoglobin 11.3 g/dL (13.5-17.5); Lymphocytes Absolute Auto 800 /uL (1100-4500); Lymphocytes Percent Auto 20.6 % (25-40); Mean Corpuscular HGB Conc 33.5 % (30-36); Mean Corpuscular Hemoglobin 34.6 PG (26-34); Mean Corpuscular Volume 103.1 fL (80-100); Monocytes Absolute Auto 500 /uL (0-900); Monocytes Percent Auto 12.5 % (3-14); Neutrophils Absolute Auto 2600 /uL (1500-7000); Neutrophils Percent Auto 63.9 % (50-75); Platelet Count 101 X10^3/uL (150-400); Red Blood Cell Count 3.26 X10^6/uL (4.5-5.9); Red Cell Distribution Width 15.7 % (11.6-14.8); White Blood Cell Count 4.1 X10^3/uL (4.5-11.0)
[2020-05-07 09:36] LABS: INR 1.7 (0.9-1.3); Prothrombin Time 19.8 SECONDS (10.1-12.7)
[2020-05-07 09:39] LABS: PTT Partial Thromboplastin Tim 37 SECONDS (26.4-36.2)
[2020-05-07 09:40] LABS: Alanine Aminotransferase 19 IU/L (<50); Albumin 4.1 g/dL (3.5-5.0); Albumin Globulin Ratio 1.5 (1.0-2.8); Alkaline Phosphatase 77 U/L (38-126); Aspartate Aminotransferase 19 IU/L (17-59); BUN Creatinine Ratio 26.8 (6-22); Bilirubin Total 0.6 mg/dL (0.2-1.3); Blood Urea Nitrogen 37 mg/dL (9-20); Calcium 9.4 mg/dL (8.4-10.2); Carbon Dioxide 25 mmol/L (22-32); Chloride 110 mmol/L (98-107); Creatine Kinase 23 U/L (55-170); Estimated Glomerular Filt Rate 49.6 mL/min (>60); Globulin 2.8 g/dL (1.7-4.1); Glucose 139 mg/dL (80-110); HEMOLYSIS < 15 (0-50); Lipase 234 U/L (23-300); Potassium 4.8 mmol/L (3.4-5.1); Sodium 141 mmol/L (137-145); Total Protein 6.9 g/dL (6.3-8.2)
--- NOTE | 2020-05-07 09:47 | DI.US.S_ITS ---
PROCEDURE: US ARTERIAL DUPLEX LE RT INDICATIONS: PAIN TECHNIQUE: Color and pulse Doppler interrogation was performed of the right lower extremity arterial system, with image documentation. COMPARISON: None. FINDINGS: Common femoral artery: 142 cm/sec, with triphasic flow. Deep femoral artery: 104 cm/sec, with biphasic flow. Proximal superficial femoral artery: 182 cm/sec, with biphasic flow. Mid superficial femoral artery: 105 cm/sec, with biphasic flow. Distal superficial femoral artery: 204 cm/sec, with biphasic flow. Popliteal artery: 101 cm/sec, with biphasic flow. Posterior tibial artery: 87 cm/sec, with biphasic flow. Anterior tibial artery/dorsalis pedis: 42 cm/sec, with biphasic flow. Dorsalis pedis: 26 cm/sec, with monophasic flow. Dasilva-scale imaging description: Minimal scattered plaque is seen in the right lower extremity. IMPRESSION: Diffuse mild disease in the right lower extremity with no significant focal stenosis. Decreased velocities in the foot probably due to small vessel disease. Dictated by: Wayne Grady M.D. on 05/07/2020 at 10:30 Approved by: Wayne Grady M.D. on 05/07/2020 at 10:34
[2020-05-07 09:52] LABS: Troponin I < 0.012 ng/mL (0.01-0.034)
--- NOTE | 2020-05-07 10:41 | DI.RAD.S_ITS ---
PROCEDURE: XR KNEE RT 3V INDICATIONS: pain TECHNIQUE: 3 views of the knee were acquired. COMPARISON: None. FINDINGS: Bones: Surgical clips are seen along the posteromedial side of the knee joint. There is medial joint space narrowing. The bones have mild degenerative changes. There are osteophytes of the lateral joint space and patella. Soft tissues: Vasculature has atherosclerotic calcifications. No joint effusion. IMPRESSION: 1. Degenerative changes of the right knee with no acute abnormality. 2. Postoperative changes along the posteromedial knee. Dictated by: Wayne Grady M.D. on 05/07/2020 at 11:09 Approved by: Wayne Grady M.D. on 05/07/2020 at 11:12
== END 2020-05-07 12:00 | disposition home or self-care (01) ==
PROVIDERS: Emergency Provider Emergency Medicine; Family Provider Family Medicine; PCP Family Medicine
DX: S83.91XA Sprain of unspecified site of right knee, initial encounter (principal); R07.9 Chest pain, unspecified; I25.10 Atherosclerotic heart disease of native coronary artery without angina pectoris
CPT/HCPCS: 36415; 71045; 73562; 80053; 82550; 83690; 84484; 85025; 85610; 85730; 93926; 93971; 99284

== ENCOUNTER → 2020-09-01 12:04 | Outpatient (CLI) | payer MEDICARE, SELFPAY ==
--- NOTE | 2020-09-01 12:06 | DI.US.S_ITS ---
PROCEDURE: US CAROTID DOPPLER BI INDICATIONS: STENOSIS TECHNIQUE: Color and pulse Doppler interrogation was performed of both carotid systems, with image documentation and velocity measurements. COMPARISON: None. FINDINGS: Stenosis calculations are based on SRU (Society of Radiologists in Ultrasound) criteria. Right side: Brachial blood pressure: 175/81 mm Hg. Common carotid artery peak systolic velocity: 65 cm/sec. Internal carotid artery peak systolic velocity: 197 cm/sec. Internal carotid artery end diastolic velocity: 42 cm/sec. External carotid artery peak systolic velocity: 374 cm/sec. ICA/CCA peak systolic ratio: 3.0 . Dasilva scale imaging description: Heavy scattered plaque. Percent internal carotid artery stenosis: 50-69% stenosis . Vertebral artery: Not visualized Left side: Brachial blood pressure: 169/72 mm Hg. Common carotid artery peak systolic velocity: 56 cm/sec. Internal carotid artery peak systolic velocity: 88 Internal carotid artery end diastolic velocity: 20 cm/sec. External carotid artery peak systolic velocity: 97 cm/sec. ICA/CCA peak systolic ratio: 1.6 . Dasilva scale imaging description: Common carotid/ICA stent graft present. Percent internal carotid artery stenosis: Less than 50% stenosis . Vertebral artery: Flow direction is antegrade. IMPRESSION: 1. 50-69% right internal carotid artery stenosis. 2. Patent left common carotid/internal carotid artery stent graft. Dictated by: Drake Soria [facility] Interpreted: Laura Figueroa MD on 09/01/2020 at 14:40 Approved by: Laura Figueroa MD, PhD on 09/01/2020 at 15:37
== END ==
PROVIDERS: Family Provider Family Medicine; PCP Family Medicine; Referring Provider Internal Medicine Cardiovascular Disease; Visit Provider Internal Medicine Cardiovascular Disease
DX: I65.21 Occlusion and stenosis of right carotid artery (principal); Z95.5 Presence of coronary angioplasty implant and graft
CPT/HCPCS: 93880

== ENCOUNTER → 2022-12-21 12:25 | Outpatient (CLI) | payer MEDICARE, SELFPAY ==
--- NOTE | 2022-12-28 10:03 | PM.PFT.1 ---
Pulmonary Function Test Referral & Results Date Patient Seen: 12/21/22 Results: The spirometry demonstrates an FVC of 2.86 L which is 67% of predicted. The FEV1 was measured at 1.83 L which is 60% of predicted. The FEV1/FVC ratio was 64 which is 90% of predicted. Following the administration of bronchodilator there was 11% improvement in FEV1 and a 42% improvement in FEF 25-75%. Lung volumes show an SVC of 3.05 L which is 65% of predicted. The diffusing capacity was measured at 15.71 which is 44% of predicted. Interpretation: This study demonstrates moderate obstructive lung disease based on reduction FEV1 although FEV1/FVC ratio is relatively preserved. There is evidence of notable benefit following bronchodilator more evident in small airway flow based on improvement in FEF 25-75% as above There is a moderate reduction in lung volumes suggesting the presence of moderate restrictive lung disease There is a moderate to moderately severe reduction in diffusing capacity suggesting the presence of significant disease at the capillary alveolar level Compared to PFTs performed in June 2018, current study demonstrates only a slight reduction in lung volumes. Diffusing capacity is however significantly reduced, previously at 64% of predicted currently 44% of predicted Clinical correlation suggested
== END ==
PROVIDERS: Family Provider Family Medicine; PCP Family Medicine; Referring Provider Nurse Practitioner; Visit Provider Nurse Practitioner
DX: R06.09 Other forms of dyspnea (principal); J98.8 Other specified respiratory disorders
CPT/HCPCS: 94060; 94726; 94729

== ENCOUNTER 2023-05-28 07:25 | Emergency (ER) | payer MEDICARE, SELFPAY ==
[2023-05-28] VITALS (16 sets, daily range): BP systolic 155–222; BP diastolic 70–98; PULSE 57–71; RESP 15–23; TEMP 37.1; O2SAT 93–99; BMI 26.7
--- NOTE | 2023-05-28 07:31 | ED.SOB ---
HPI - SOB/Dyspnea General Chief Complaint: Upper Respiratory Symptoms Stated Complaint: + COVID, Sore throat and SOB Time Seen by Provider: 05/28/23 07:26 Source: patient, EMS (from [facility]), RN notes reviewed and old records reviewed Mode of arrival: EMS Limitations: no limitations History of Present Illness HPI Narrative: 80-year-old male with history of CABG, cardiac stents, pacemaker, pulmonary emboli on Eliquis, chronic kidney disease, with recent diagnosis 4 days ago with COVID. Patient states for the past 2 days he has been on Paxlovid. He presents today with a little bit of shortness of breath but main complaint is actually sore throat and painful swallowing. He has not had any issues swallowing his secretions. He states it hurts quite a bit to swallow fluids or eat. Patient states he is had fevers up to 101 F. Some nasal congestion. He is felt a little short of breath. He denies any chest pain or pressure. He does have a history of asthma sometimes uses albuterol but states has not been using it or feeling like he needs to use it this week. He did have a DuoNeb with EMS EN route. Patient states no nausea, no vomiting. Denies any diarrhea or constipation. Denies any urinary symptoms. No new swelling of extremities. Patient denies any drug allergies. Notes prior CABG, pacemaker. Patient lives on [address]. Patient lives independently he ambulated to the [facility] for EMS. His [place] ferry [place]. Related Data Home Medications Medication Instructions Recorded Confirmed aspirin 81 mg tablet,delayed 81 mg PO QDAY ##0 01/21/13 03/09/20 release [CO-Q-10] 300 mg Q DAY ##0 03/20/16 03/09/20 ascorbic acid (vitamin C) 500 mg 1,000 mg PO QDAY #0 tabs 03/20/16 tablet albuterol sulfate 90 mcg/actuation 2 puff inhalation Q4-6H PRN 03/09/20 03/09/20 aerosol inhaler (Ventolin HFA) Shortness Of Breath apixaban 5 mg tablet (Eliquis) 5 mg PO BID 03/09/20 03/09/20 carvedilol 25 mg tablet 25 mg PO BID 03/09/20 03/09/20 cyclobenzaprine 10 mg tablet 10 mg PO BEDTIME PRN Muscle Spasm 03/09/20 03/09/20 diphenhydramine 25 1 tab PO BEDTIME PRN Spasms 03/09/20 03/09/20 mg-acetaminophen 500 mg tablet (Acetaminophen PM) fluticasone propionate 110 2 puff inhalation BID 03/09/20 03/09/20 mcg/actuation HFA aerosol inhaler (Flovent HFA) losartan 25 mg tablet 25 mg PO DAILY 03/09/20 03/09/20 rosuvastatin 40 mg tablet 40 mg PO DAILY 03/09/20 03/09/20 sildenafil 100 mg tablet 100 mg PO DAILY PRN Erectile 03/09/20 03/09/20 Dysfunction tamsulosin 0.4 mg capsule 0.4 mg PO BEDTIME 03/09/20 03/09/20 Previous Rx's Medication Instructions Recorded [id number] 3.5 0 OTIC QID #10 mL 05/25/16 mg-10,000 unit/mL-1 % ear drops,susp prednisone 5 mg tablet 2.5 mg (1/2 x 5 mg) PO QDAY #45 02/09/17 tabs allopurinol 100 mg tablet 200 mg (2 x 100 mg) PO QDAY #180 02/22/17 tabs hydrocodone 5 mg-acetaminophen 325 1 tab PO Q6H PRN pain #10 tabs 05/07/20 mg tablet oxycodone 5 mg tablet 5 mg PO Q6H PRN pain #14 tabs 05/28/23 Allergies Allergy/AdvReac Type Severity Reaction Status Date / Time No Known Drug Allergies Allergy Verified 05/28/23 07:35 Review of Systems Review of Systems ROS Unobtainable: All systems reviewed & are unremarkable except as noted in HPI and below Patient History Medical History (Updated 05/28/23 @ 10:39 by Cady Rubin DO) Pacemaker Stage 3 chronic kidney disease (08/23/15) Mesenteric ischemia (08/23/15) Mixed hyperlipidemia (08/23/15) History of colonic polyps (08/23/15) History of stroke (08/23/15) Coronary artery disease involving quileute 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 HEENT: Atraumatic, pupils are equal round reactive to light, extraocular movements are intact, nares are clear, there is no conjunctival pallor. Throat is clear without any exudates, mild erythema, no tonsillar enlargement or uvular deviation, no cervical lymphadenopathy. No stridor. No difficulty with swallowing secretions. Patient is able to lay back without issue. Slightly hoarse. No muffled voice. HEART: Regular rate and rhythm without murmur, clicks, rubs. LUNGS:Lungs clear to auscultation, no wheezes, rales, crackles, chest moves symmetrically ABD:bowel sounds normal, soft, non-tender, no guarding, rebound, rigidity, no masses noted, no hepatosplenomegaly :No CVA tenderness MSCL: Non-tender, no muscle atrophy, muscles strength 5/5 upper and lower extremities, full range of motion NEURO:CN 2-12 intact, sensation normal SKIN: No rash, erythema or other skin changes Initial Vital Signs Initial Vital Signs: Vital Signs Pulse Rate 69 05/28/23 07:26 Pulse Oximetry 97 05/28/23 07:26 Course Orders Ordered: ED Orders 05/28/23 09:49 Trop I [Troponin I] Stat Discontinued Medications Acetaminophen (Acetaminophen 325 Mg Tablet) 975 mg PO NOW ONE Stop: 05/28/23 07:31 Last Admin: 05/28/23 07:40 Dose: 975 mg Documented By: RAÚL Carvedilol (Carvedilol 12.5 Mg Tablet) 25 mg PO NOW ONE Stop: 05/28/23 08:52 Last Admin: 05/28/23 09:08 Dose: 25 mg Documented By: RAÚL Dexamethasone (Dexamethasone 10 Mg/Ml Vial) 10 mg PO NOW ONE Stop: 05/28/23 07:31 Last Admin: 05/28/23 07:39 Dose: 10 mg Documented By: RAÚL Losartan Potassium (Losartan 25 Mg Tablet) 25 mg PO NOW ONE Stop: 05/28/23 08:52 Last Admin: 05/28/23 09:09 Dose: 25 mg Documented By: RAÚL Oxycodone HCl (Oxycodone Ir 5 Mg Tablet) 5 mg PO NOW ONE Stop: 05/28/23 08:53 Last Admin: 05/28/23 09:09 Dose: 5 mg Documented By: RAÚL Vital Signs Vital signs: Vital Signs - 8 hr 05/28/23 10:30 05/28/23 10:31 05/28/23 10:31 Pulse Rate 60 60 Respiratory Rate 17 15 Blood Pressure 155/70 H Pulse Oximetry 94 93 Oxygen Delivery Method 05/28/23 11:00 05/28/23 11:00 Pulse Rate 60 Respiratory Rate 16 Blood Pressure 170/75 H Pulse Oximetry 95 Oxygen Delivery Method Room Air MDM - SOB/Dyspnea Lab Data 05/28/23 07:35 05/28/23 07:35 Labs: Lab Results 05/28/23 05/28/23 Range/Units 07:35 09:49 WBC 5.2 (4.5-11.0) X10^3/uL RBC 2.46 L (4.5-5.9) X10^6/uL Hgb 9.2 L (13.5-17.5) g/dL Hct 26.7 L (41-53) % MCV 108.8 H (80-100) fL MCH 37.6 H (26-34) PG MCHC 34.6 (30-36) % RDW 15.5 H (11.6-14.8) % Plt Count 73 L (150-400) X10^3/uL Neut % (Auto) 64.4 (50-75) % Lymph % (Auto) 23.0 L (25-40) % Keith % (Auto) 11.8 (3-14) % Eos % (Auto) 0.4 L (2-4) % Baso % (Auto) 0.4 (0-2) % Neut # (Auto) 3400 (7998-8270) /uL Lymph # (Auto) 1200 (2006-1417) /uL Keith # (Auto) 600 (0-900) /uL Eos # (Auto) 0 (0-450) /uL Baso # (Auto) 0 (0-100) /uL PT 13.8 H (9.4-12.5) SECONDS INR 1.2 (0.9-1.3) APTT 26 (25.1-36.5) SECONDS Sodium 135 L (137-145) mmol/L Potassium 4.2 (3.4-5.1) mmol/L Chloride 105 (98-107) mmol/L Carbon Dioxide 19 L (22-32) mmol/L BUN 28 H (9-20) mg/dL Creatinine 1.96 H (0.66-1.25) mg/dL Estimated GFR 33 L (>60) mL/min BUN/Creatinine Ratio 14.3 (6-22) Glucose 119 H (80-110) mg/dL Calcium 9.2 (8.4-10.2) mg/dL Total Bilirubin 1.0 (0.2-1.3) mg/dL AST 22 (17-59) IU/L ALT 14 (<50) IU/L Alkaline Phosphatase 59 (38-126) U/L Total Creatine Kinase 74 (55-170) U/L Troponin I 0.049 H 0.049 H (0.01-0.034) ng/mL NT-Pro-B Natriuret Pep 1630 H (<450) pg/mL Total Protein 7.1 (6.3-8.2) g/dL Albumin 4.3 (3.5-5.0) g/dL Globulin 2.8 (1.7-4.1) g/dL Albumin/Globulin Ratio 1.5 (1.0-2.8) Lipase 164 (23-300) U/L Imaging Data Chest x-ray: Radiologist's Impression: [address] [address] XRay Report Signed Patient: Benjamin Hilliard MR#: [id number] : 1940 Acct:[id number] Age/Sex: 83 / M Date of Service: 05/28/23 Loc: ED Accession Number: [id number] Procedure: XR chest 1V Ordering Provider: Cady Rubin D.O. PROCEDURE: XR CHEST 1V INDICATIONS: sob., sore throat +covid TECHNIQUE: One view of the chest was acquired. COMPARISON: [facility], , CHEST 1 VIEW, 06/24/2017, 14:53. [facility], , CHEST 2 VIEW, 10/03/2013, 10:47. FINDINGS: Surgical changes and devices: Left pacemaker with right atrial and right ventricular leads. Left atrial appendage clip. Post median sternotomy and CABG. Lungs and pleura: Lungs are clear. No pleural effusions or pneumothorax. Mediastinum: Mediastinal contours appear unchanged. Heart size is prominent. Bones and chest wall: No suspicious bony lesions. Overlying soft tissues appear unremarkable. IMPRESSION: No acute cardiopulmonary abnormality is seen. Dictated by: Mohinder Cisse M.D. on 05/28/2023 at 8:04 Approved by: Mohinder Cisse M.D. on 05/28/2023 at 8:06 ECG Data Attestation: I personally reviewed and interpreted this ECG as follows: Prior ECG tracings: available for review Interpretation: Atrial paced rhythm rate of 63, P are 218 QRS of 150 QTC of 429 right bundle-branch block. Patient does have priors for comparison. EKG 2. Atrial paced rhythm rate of 60 WA 220, QRS of [address] No acute [address] elevation depression noted right bundle-branch block. No dynamic changes noted. MDM Narrative Medical decision making narrative: 83-year-old man with known COVID tested 2 days ago was positive was started on Paxlovid his complaining mostly of sore throat but a little bit of shortness of breath. Labs today show white count of 5.2 hemoglobin is 9.2 with a crit of 26 and platelets of 73 patient has some macrocytosis labs from 2 years ago showed 11.3 but macrocytosis as well with low platelets and low white count. Patient labs reviewed patient's creatinine today is 1.96. He does not recall his prior GFR or creatinine but states he is a stage III patient would fit within this for his CKD. Prior labs are from 2020 known recently. Reviewed troponin is elevated could be secondary to chronic kidney disease versus if he is having any cardiac stress we will repeat his troponin. INR is 1.2 sodium is 135 potassium 4 2 CO2 is 19 with a BUN 28 creatinine 1.96, glucose is 119 with otherwise normal LFTs and lipase. Troponin is repeated a stable on repeat. BNP is 1630. EKG shows paced rhythm with right bundle-branch block. No acute or dynamic EKG changes on repeat EKG. Chest x-ray is negative for pneumonia or pulmonary edema. 83-year-old male with known COVID infection on day 2 of Paxlovid. Patient's creatinine is 1.96 up from 20 20 but still with end stage III which patient states is his normal his labs showed a indeterminate troponin may have been leak secondary to chronic kidney disease and was repeated as patient has some mild shortness of breath but no chest pain or other anginal symptoms. Repeat is stable with no acute changes. BNP slightly elevated at 16 30 but patient does not have any other signs of fluid overload would hold off on adding Lasix at this time. Patient does have a hemoglobin of 9.2 and needs to follow up primary care for this. Patient's main complaint was sore throat had improvement with some Tylenol and dexamethasone oral. Did give 1 dose of oral narcotic pain medication. He has been tolerating orals and secretions without issues. Was also given his home blood pressure medications. Patient felt safe for disposition home. Short course of pain medication for his throat need for follow up with primary care for recheck. Discharge Plan Departure Patient Disposition: Home Clinical Impression: COVID-19 virus infection, CKD (chronic kidney disease), Anemia Instructions: DI for COVID-19 (Suspected or Confirmed ) Activity Restrictions/Additional Instructions: Follow-up with your physician for recheck. Your workup today does show chronic kidney disease your creatinine is 1.96 last priors were from 2 years ago make sure this is consistent with your recent labs. This is in stage 3 chronic kidney disease. Your hemoglobin is also low should follow up with your physician to make sure this isn't dropping or trending downwards. Your hemoglobin is 9.2 today. You may continue your current medications as prescribed follow directions given to you by your physician for your Paxlovid. You may continue with Tylenol up to a 1000 mg every 6 hours as needed for pain. You can take 1 tablet of oral pain medication every 6 hours as needed for pain. This is a narcotic. This medication can make you sleepy do not drive, perform hazardous activities or make any major decisions while taking it. This medication will make you constipated please take a stool softener once to twice daily until stools are soft and regular. Prescription sent to [facility] Please return for rapidly worsening symptoms increasing chest pain, shortness of breath, lightheadedness or passing out, new swelling of your extremities, persistent vomiting or other new or concerning changes. Prescriptions: New oxycodone 5 mg tablet 5 mg PO Q6H PRN (Reason: pain) Qty: 14 0RF No Action aspirin 81 MG tablet,delayed release (DR/EC) 81 mg PO QDAY Qty: 0 ascorbic acid (vitamin C) 500 MG tablet 1,000 mg PO QDAY Qty: 0 [CO-Q-10] 300 mg Q DAY Qty: 0 [id number] 10 ML drops,suspension 0 OTIC QID Qty: 10 0RF prednisone 5 MG tablet 2.5 mg PO QDAY Qty: 45 1RF allopurinol 100 MG tablet 200 mg PO QDAY Qty: 180 0RF cyclobenzaprine 10 mg Tablet 10 mg PO BEDTIME PRN (Reason: Muscle Spasm) carvedilol 25 mg Tablet 25 mg PO BID sildenafil 100 mg Tablet 100 mg PO DAILY PRN (Reason: Erectile Dysfunction) tamsulosin 0.4 mg Capsule 0.4 mg PO BEDTIME losartan 25 mg Tablet 25 mg PO DAILY albuterol sulfate [Ventolin HFA] 90 mcg/actuation Hfa Aerosol Inhaler 2 puff INHALATION Q4-6H PRN (Reason: Shortness Of Breath) diphenhydramine-acetaminophen [Acetaminophen PM] 25-500 mg Tablet 1 tab PO BEDTIME PRN (Reason: Spasms) Flovent HFA 110 mcg/actuation Hfa Aerosol Inhaler 2 puff INHALATION BID rosuvastatin 40 mg Tablet 40 mg PO DAILY Eliquis 5 mg Tablet 5 mg PO BID hydrocodone-acetaminophen 5-325 mg tablet 1 tab PO Q6H PRN (Reason: pain) Qty: 10 0RF Referrals: Saeed Ramirez MD [Primary Care Provider] - Stand Alone Forms: Patient Portal/API
[2023-05-28] MEDS: DEXAMETHASONE 10 MG/ML VIAL PO (07:39)
[2023-05-28] MEDS: ACETAMINOPHEN 325 MG TABLET 975 MG PO (07:40)
[2023-05-28 08:06] LABS: Add Manual Diff / Slide Review NO; Basophils Absolute Auto 0 /uL (0-100); Basophils Percent Auto 0.4 % (0-2); Eosinophils Absolute Auto 0 /uL (0-450); Eosinophils Percent Auto 0.4 % (2-4); Hematocrit 26.7 % (41-53); Hemoglobin 9.2 g/dL (13.5-17.5); Lymphocytes Absolute Auto 1200 /uL (1100-4500); Mean Corpuscular HGB Conc 34.6 % (30-36); Mean Corpuscular Hemoglobin 37.6 PG (26-34); Mean Corpuscular Volume 108.8 fL (80-100); Monocytes Absolute Auto 600 /uL (0-900); Monocytes Percent Auto 11.8 % (3-14); Neutrophils Absolute Auto 3400 /uL (1500-7000); Neutrophils Percent Auto 64.4 % (50-75); Platelet Count 73 X10^3/uL (150-400); Red Blood Cell Count 2.46 X10^6/uL (4.5-5.9); Red Cell Distribution Width 15.5 % (11.6-14.8); White Blood Cell Count 5.2 X10^3/uL (4.5-11.0)
[2023-05-28 08:10] LABS: INR 1.2 (0.9-1.3); Prothrombin Time 13.8 SECONDS (9.4-12.5)
[2023-05-28 08:13] LABS: PTT Partial Thromboplastin Tim 26 SECONDS (25.1-36.5)
[2023-05-28 08:14] LABS: Alanine Aminotransferase 14 IU/L (<50); Albumin 4.3 g/dL (3.5-5.0); Albumin Globulin Ratio 1.5 (1.0-2.8); Alkaline Phosphatase 59 U/L (38-126); Aspartate Aminotransferase 22 IU/L (17-59); BUN Creatinine Ratio 14.3 (6-22); Blood Urea Nitrogen 28 mg/dL (9-20); Calcium 9.2 mg/dL (8.4-10.2); Carbon Dioxide 19 mmol/L (22-32); Chloride 105 mmol/L (98-107); Creatine Kinase 74 U/L (55-170); Estimated Glomerular Filt Rate 33 mL/min (>60); Globulin 2.8 g/dL (1.7-4.1); Glucose 119 mg/dL (80-110); HEMOLYSIS < 15 (0-50); Lipase 164 U/L (23-300); Potassium 4.2 mmol/L (3.4-5.1); Sodium 135 mmol/L (137-145); Total Protein 7.1 g/dL (6.3-8.2)
[2023-05-28 08:26] LABS: Troponin I 0.049 ng/mL (0.01-0.034)
[2023-05-28 09:06] LABS: NT-proBNP (BNP-Adult 18+) 1630 pg/mL (<450)
[2023-05-28] MEDS: carvediloL 12.5 MG TABLET 25 MG PO (09:08)
[2023-05-28] MEDS: OXYCODONE IR 5 MG TABLET PO (09:09)
[2023-05-28] MEDS: LOSARTAN 25 MG TABLET PO (09:09)
[2023-05-28 10:15] LABS: Troponin I 0.049 ng/mL (0.01-0.034)
== END 2023-05-28 11:30 | disposition home or self-care (01) ==
PROVIDERS: Emergency Provider Emergency Medicine; Family Provider Family Medicine; PCP Family Medicine
DX: U07.1 COVID-19 (principal); I45.10 Unspecified right bundle-branch block; I12.9 Hypertensive chronic kidney disease with stage 1 through stage 4 chronic kidney disease, or unspecified chronic kidney disease; N18.30 Chronic kidney disease, stage 3 unspecified; D63.1 Anemia in chronic kidney disease
CPT/HCPCS: 36415; 71045; 80053; 82550; 83690; 83880; 84484; 85025; 85610; 85730; 93005; 93010; 99284; J1100